=== PATIENT | male | born 1935 | race Caucasian/White ===

== ENCOUNTER 2021-03-24 22:02 | Emergency (ER) | payer OTHER ==
[~2021-03-24] VITALS: Ht 170.2 cm; Wt 81.6 kg
[2021-03-24] MEDS ORDERED: METOPROLOL 100 MG (22:18)
[2021-03-24] MEDS ORDERED: LISINOPRIL (22:18)
[2021-03-24] MEDS ORDERED: ATORVASTATIN (22:19)
[2021-03-25] MEDS ORDERED: PEPCID40 MG PO (02:42)
[2021-03-25] MEDS ORDERED: PROTONIX40 MG PO (02:42)
== END 2021-03-25 02:52 | disposition home or self-care (01) ==
LOC: ER 22:02
DX: K21.9 Gastro-esophageal reflux disease without esophagitis (principal); Z03.818 Encounter for observation for suspected exposure to other biological agents ruled out